=== PATIENT | male | born 1930 | race Caucasian/White ===

== ENCOUNTER 2016-10-13 11:26 | Emergency (ER) | payer OTHER ==
[~2016-10-13] VITALS: Wt 102.1 kg
[2016-10-13 12:11] LABS: BASO % 0.6 % (0.0-1.0); EOS # 0.1 10*3/uL (0.0-0.4); EOS % 1.2 % (1.0-4.0); HEMATOCRIT 43.1 % (42.0-52.0); LYMPH % 29.6 % (27.0-41.0); MEAN CELL VOLUME 95.4 fl (80.0-94.0); MEAN CORPUSCULAR HGB CONC 32.5 g/dl (33.0-37.0); MONO # 0.6 10*3/uL (0.1-1.0); MONO % 8.3 % (3.0-9.0); NEUT # 4.1 10*3/uL (2.3-7.9); NEUT % 59.7 % (47.0-73.0); PLATELET COUNT AUTOMATED 142 10*3/uL (130-400); RED BLOOD COUNT 4.52 10*6/uL (4.50-5.90); RED CELL DISTRI WIDTH 13.2 % (0-14.5); WHITE BLOOD COUNT 6.8 10*3/uL (4.8-10.8)
[2016-10-13 12:27] LABS: BUN 21 mg/dl (7-24); CARBON DIOXIDE 24 mmol/L (21-32); CHLORIDE 105 mmol/L (98-107); EST GLOM FILT AFRICAN AMERICAN 56 ml/min; GLUCOSE 200 mg/dL (65-99); POTASSIUM 3.5 mmol/L (3.5-5.1); SODIUM 141 mmol/L (136-145)
[2016-10-13 12:29] LABS: TROPONIN I < 0.015 ng/ml (<0.5)
[2016-10-13] MEDS ORDERED: ANECREAM5 GM TP (13:09)
[2016-10-13] MEDS ORDERED: FUROSEMIDE20 M1 PO (13:09)
[2016-10-13] MEDS ORDERED: EQ LUBRICATING15 ML OP (13:10)
[2016-10-13] MEDS ORDERED: GLIPIZIDE XL5 M1 PO (13:11)
[2016-10-13] MEDS ORDERED: BIDIL 37.5 MG-21 TAB PO (13:12)
[2016-10-13] MEDS ORDERED: LOPRESSOR50 M1 PO (13:13)
[2016-10-13] MEDS ORDERED: LISINOPRIL20 MG PO (13:13)
== END 2016-10-13 14:53 | disposition home or self-care (01) ==
LOC: ED 11:26
PROVIDERS: Emergency Medicine
DX: R06.02 Shortness of breath (principal); R42 Dizziness and giddiness; R51 Headache; Z86.73 Personal history of transient ischemic attack (TIA), and cerebral infarction without residual deficits; Z88.4 Allergy status to anesthetic agent; Z88.8 Allergy status to other drugs, medicaments and biological substances